=== PATIENT | female | born 1990 | race Caucasian/White ===

== ENCOUNTER 2016-09-30 09:03 | Emergency (ER) | payer MEDICAID ==
[2016-09-30 09:08] VITALS: BP 120/77; PULSE 87; RESP 18; TEMP 97.5; O2SAT 99
--- NOTE | 2016-09-30 09:56 | EDPHY ---
H & P Time Seen by Provider: 09/30/16 09:33 HPI/ROS: CHIEF COMPLAINT: Odontalgia HISTORY OF PRESENT ILLNESS: 26-year-old female 3 months , history of poor dentition, but complaining of progressive right mandibular molar pain for the past 3 days. She has an upcoming appointment with dentist in 2 days however she is concerned due to her facial swelling and pain and her . she has been seen by an minilab operator, had ultrasonographic confirmation. She denies : Fever, chills, chest pain, sore throat, abdominal pain or cramping, urinary abnormality PHYSICAL EXAM (Prior to examination, patient consented to physical exam, hands were washed and my usual and customary physical exam procedures followed) 1) GENERAL: Well-developed, well-nourished, alert and oriented. Appears to be in no acute distress. 2) HEAD: Normocephalic 3) HEENT: sclera anicteric. No trismus no drooling. Poor dentition. Tender to percussion multiple right mandibular molars. No evidence of apical abscess. Floor of mouth soft no evidence of Memo's angina. Nasolabial folds are symmetrical. There is minimally appreciable asymmetrical right facial swelling. Submandibular and submental spaces are soft with no induration no tenderness no adenopathy. Full range of motion of the TMJ bilaterally 4) LUNGS: Breathing comfortably. Smoking Status: Never smoked Constitutional: Initial Vital Signs Temperature (C) 36.4 C 09/30/16 09:05 Heart Rate 87 09/30/16 09:05 Respiratory Rate 18 09/30/16 09:05 Blood Pressure 120/77 09/30/16 09:05 O2 Sat (%) 99 09/30/16 09:05 O2 Delivery Mode Room Air Allergies/Adverse Reactions: gluten Allergy (Verified 09/30/16 09:04) Home Medications: Medication Instructions Recorded Amoxicillin Trihydrate 500 mg PO Q8 7 Days 09/30/16 [Amoxicillin 500mg cap] 09/30/16 MDM/Departure - [facility] ED Course/Re-evaluation: I do not think that imaging studies or emergent ENT or OMF consultation is indicated. She has no evidence of Memo's angina. There is minimally appreciated facial asymmetrical swelling. I have started the patient on amoxicillin recommend she keep her appointment with dentist in 2 days. Usual customary odontogenic precautions instructions provided - Depart Disposition: Home, Routine, Self-Care Clinical Impression: Odontalgia Condition: Good Instructions: Toothache (ED) Additional Instructions: Return to the ER immediately if you cannot swallow, have drooling, fevers, neck stiffness, cannot open your jaw, or any other symptoms that concern you. Prescriptions: Amoxicillin Trihydrate [Amoxicillin 500mg cap] 500 mg PO Q8 7 Days Referrals: Keep, your dentist appointment on [Other] - 10/02/16
== END 2016-09-30 10:08 | disposition home or self-care (01) ==
DX: O99.619 Diseases of the digestive system complicating pregnancy, unspecified trimester (principal); K08.89 Other specified disorders of teeth and supporting structures; Z3A.00 Weeks of gestation of pregnancy not specified

== ENCOUNTER 2018-07-20 21:12 | Emergency (ER) | payer MEDICAID ==
[2018-07-20] MEDS ORDERED: TDAP ADULT 0.5 ML INJ (BOOSTRIX) IM ONE (21:40)
--- NOTE | 2018-07-20 22:14 | EDPHY ---
General - History Smoking Status: Never smoked Time Seen by Provider: 07/20/18 21:30 Narrative: CLINICAL IMPRESSION: Left 2nd finger crush injury with laceration ASSESSMENT/PLAN: 28-year-old female presents to the emergency department after accidentally crushing her left 2nd finger between 2 pieces of metal earlier this morning. Patient has a laceration to the distal lateral aspect of the finger, intact distal 2 point discrimination and range of motion. Tetanus was updated in the ED. X-ray show no evidence of underlying fracture or foreign body. Wound was thoroughly cleaned and repaired as per chart notes. Home care discussed, rice treatment reviewed, PCP follow-up recommended, warning signs return to ED outlined discharge. DIFFERENTIAL DX: Differential includes but not limited to acute fracture, strain/sprain, joint dislocation, soft tissue contusion ED PROCEDURES: Laceration Repair Verbal consent obtained by patient. Risks discussed, including but not limited to infection, pain, retained foreign body, need for additional repair, poor cosmetic result, tendon damage, nerve damage, poor wound healing, vascular damage. Alternatives to repair discussed. [place] protocol used to establish correct patient, procedure, equipment, pc support specialist, and site. Anesthesia obtained by DIGITAL NERVE BLOCK AT LEFT 2ND MCP. Anesthetized with 0.5% bupivacaine without epi. Laceration location left 2nd finger 2 cm long depth 3 mm, Repair type simple. Patient was prepped and draped in usual sterile fashion. Hemostasis achieved with direct pressure. Wound explored through full range of motion and entire depth of wound probed and visualized with gloved finger. No suspicion for nerve damage, tendon damage, underlying fracture, vascular damage, foreign body, or contamination. Area was cleansed with Shur-Clens and irrigated with sterile saline as per protocol. No foreign body or material removed. Repair method 4 0 Prolene simple interrupted sutures. Eight of sutures placed. Well aligned, closely approximated. wound was dressed with bacitracin and bandage. Patient tolerated well with no immediate complications. Wound care: Clean and dry x 24 hours, gently clean with soap and water, cover with topical antibiotic ointment/bandage. Suture/Staple removal: 7-10 Days ED COURSE: Patient seen and assessed by myself. Plan for x-rays, tetanus booster, digital block, laceration irrigation and repair. 10:10 P.M. no acute fracture on x-ray CHIEF COMPLAINT: 2nd finger injury HPI: 28-year-old female presents to the emergency department with left 2nd finger pain after accidentally crushing the finger between 2 pieces of metal earlier today. Patient wash the wound, poured peroxide on it, took a leftover Keflex at home, and then decided to come to the ED because of persistent swelling in the fact that she starting a new job tomorrow morning. Her tetanus is not up-to -date. She denies numbness or loss of sensation to the finger and denies difficulty with range of motion. PAST MEDICAL HISTORY: None reported Pertinent Past Surgical History: None reported Social History: Otherwise healthy REVIEW OF SYSTEMS: All other systems negative Constitutional: No fever, no chills Musculoskeletal: No deformity, + joint pain Skin: No rashes, color change or open wounds. Neurological: No sensory loss or weakness. PHYSICAL EXAM: General Appearance: Alert, oriented, appropriate for age, cooperative, NAD, well hydrated, non-toxic appearing, VSS, no hypoxia. Neurological: Alert and oriented x 3, normal sensation and strength of extremities Skin: 2 cm laceration to the lateral proximal aspect of the left 2nd finger. No evidence of extensor or flexor tendon injury. Musculoskeletal: Full range of motion, no deep vascular tendon injury. Distal 2 point discrimination intact MEDICAL DECISION MAKING: Patient was seen independently. Secondary supervising physician at time of evaluation was Dr. Robins . Diagnosis: Left 2nd finger crush injury with laceration. New, requires workup Summary: See assessment and plan for summary of ED visit Independent visualization of images, tracing, or specimens yes. Patient Progress: Improved, stable for discharge. (Kirk Alanis Rosalinda) Medical Decision Making: I did not see this patient while she was in the emergency department. However her care was discussed with the PA while the patient was in the department. I agree with treatment plan and management (Edwin Robins) - Diagnostics Imaging Results: Imaging Impressions Hand X-Ray 07/20/18 21:33 Impression: 1. No acute fracture left hand with attention second digit. - Objective Vital Signs: Initial Vital Signs Temperature (C) 36.8 C 07/20/18 21:23 Heart Rate 91 07/20/18 21:23 Respiratory Rate 16 07/20/18 21:23 Blood Pressure 112/73 07/20/18 21:23 O2 Sat (%) 95 07/20/18 21:23 O2 Delivery Mode Room Air Allergies/Adverse Reactions: gluten Allergy (Verified 07/20/18 21:28) Home Medications: Medication Instructions Recorded Albuterol 07/20/18 Tylenol 07/20/18 Medications Given: Discontinued Medications Diphtheria/Tetanus/Acell Pertussis (Boostrix) 0.5 ml IM .ONCE ONE Stop: 07/20/18 21:41 Last Admin: 07/20/18 21:47 Dose: 0.5 ml Departure - Departure Disposition: Home, Routine, Self-Care Clinical Impression: Finger laceration, Crush injury Condition: Good Instructions: Laceration (ED), Crush Injury (ED) Additional Instructions: DISCHARGE INSTRUCTIONS FROM YOUR DOCTOR Thank you for visiting our emergency department today. You were treated by a physician surgical assistant today and your case was reviewed with our ED Attending physician. Please keep in mind that discharge from the emergency department does not mean that there is nothing wrong - it simply means that we have not identified an emergency condition that requires further evaluation or treatment in the hospital. You should always plan to follow up with primary care for re- evaluation of your condition in the next 2-3 days. If you have been referred to a specialist, please call as soon as possible (today or tomorrow) to schedule your follow up appointment at the appropriate time. X-RAYS ARE NEGATIVE FOR FRACTURE AND FOREIGN BODY. PLEASE HAVE SUTURES/ DANIEL REMOVED IN 7-10 DAYS. YOU CAN RETURN TO THE EMERGENCY DEPARTMENT OR YOUR PRIMARY CARE FOR SUTURE/STAPLE REMOVAL. AVOID SUBMERGING SUTURES/DANIEL UNDERWATER FOR PROLONGED PERIOD OF TIME UNTIL REMOVED. KEEP WOUND CLEAN AND DRY , COVER WITH ANTIBIOTIC OINTMENT AND BAND-AID. RETURN TO EMERGENCY DEPARTMENT FOR REDNESS, SWELLING, DISCHARGE, WARMTH TO THE SKIN, OR ANY OTHER CONCERNS FOR INFECTION. People present with illnesses and injuries in different ways, and it is always possible that we have missed something. You may always return for re-evaluation if symptoms worsen or if they are not improving or if you develop new/different symptoms. Again, thank you for choosing our emergency department. We hope that you feel better. Referrals: NONE *PRIMARY CARE P,. [Primary Care Provider] - As per Instructions [facility],. [Clinic] - 2-3 days, call for appt.
[2018-07-20 22:39] VITALS: BP 108/74
== END 2018-07-20 22:38 | disposition home or self-care (01) ==
PROC: 0HQGXZZ Repair Left Hand Skin, External Approach (ICD-10-PCS; principal; 2018-07-20)
DX: S61.211A Laceration without foreign body of left index finger without damage to nail, initial encounter (principal); W23.1XXA Caught, crushed, jammed, or pinched between stationary objects, initial encounter; Y92.009 Unspecified place in unspecified non-institutional (private) residence as the place of occurrence of the external cause; Z23 Encounter for immunization